=== PATIENT | male | born 1965 | race Caucasian/White ===

== ENCOUNTER 2022-10-04 19:38 | Emergency (ER) | payer BC ==
[~2022-10-04] VITALS: Ht 157.5 cm; Wt 59.0 kg
[2022-10-04 20:11] VITALS: BP_SYST 139
[2022-10-04] MEDS ORDERED: LIDOCAINE 1% 10 MG/ML, 20 ML MDV INJ ONE (20:30)
[2022-10-04] MEDS ORDERED: DIPHTH,PERTUSS(ACELL),TET VAC 0.5 ML VIAL (Tdap) I.M. ONE (20:30)
[2022-10-04 22:31] VITALS: BP_SYST 122
== END 2022-10-04 22:29 | disposition home or self-care (01) ==
LOC: SED 19:38
DX: S91.311A Laceration without foreign body, right foot, initial encounter (principal); Z79.899 Other long term (current) drug therapy; W27.0XXA Contact with workbench tool, initial encounter; Y93.89 Activity, other specified; Y92.89 Other specified places as the place of occurrence of the external cause; Y99.8 Other external cause status
CPT/HCPCS: 90715; 99283